=== PATIENT | female | born 1975 | race African-American/Black ===

== ENCOUNTER 2019-08-01 10:17 | Outpatient (CLI) | payer OTHER ==
--- NOTE | 2019-08-01 10:59 | MMO ---
Bilateral MAMMO Bilat Screen [facility]. CLINICAL HISTORY: Patient is 43 years old and is seen for screening. The patient has no family history of breast cancer. The patient has no personal history of cancer. VIEWS: The views performed were: bilateral craniocaudal with tomosynthesis; bilateral mediolateral oblique with tomosynthesis; and left mediolateral oblique. This study has been interpreted with the assistance of computer-aided detection. MAMMOGRAM FINDINGS: There are scattered fibroglandular densities. There are no suspicious masses, suspicious calcifications, or new areas of architectural distortion. IMPRESSION: THERE IS NO MAMMOGRAPHIC EVIDENCE OF MALIGNANCY. A ROUTINE FOLLOW-UP MAMMOGRAM IN 1 YEAR IS RECOMMENDED. THE RESULTS OF THIS EXAM WERE SENT TO THE PATIENT. ACR BI-RADS Category 1 - Negative MAMMOGRAPHY NOTE: 1. A negative mammogram report should not delay a biopsy if a dominant of clinically suspicious mass is present. 2. Approximately 10% to 15% of breast cancers are not detected by mammography. 3. Adenosis and dense breasts may obscure an underlying neoplasm. Reported by: CHAU BARTON MD Electonically Signed: [id number]
== END 2019-08-01 10:18 | disposition home or self-care (01) ==
LOC: BICMAMMO 10:17
PROVIDERS: ATTEND Family Medicine
DX: Z12.31 Encounter for screening mammogram for malignant neoplasm of breast (principal)
CPT/HCPCS: 77063; 77067

== ENCOUNTER 2019-08-23 11:50 | Inpatient (IN) | payer OTHER ==
--- NOTE | 2019-08-23 12:43 | RAD ---
Exam: Chest one view HISTORY:Dyspnea. Patient's is an unknown COVID positive Comparison: 01/21/2016 FINDINGS: Cardiac silhouette: Normal Aorta: Unremarkable Pulmonary vessels: Normal Costophrenic angles: Clear LUNGS: Bilateral interstitial and alveolar opacities Pneumothorax: None Osseous abnormalities: None IMPRESSION: Bilateral interstitial and alveolar opacities. Correlate for edema or infiltrate. Atypica l infection such as COVID cannot be excluded.
[2019-08-23] MEDS ORDERED: Albuterol 200 PUFF (6.7GM INHALER) INH SCH (12:45)
[2019-08-23 12:52] LABS: Mean Corpuscular HGB CONC 32.8 g/dL (32.0-36.0); Mean Corpuscular Hemoglobin 28.6 pg (27.0-31.0); Mean Corpuscular Volume 87.1 fL (78.0-98.0); Mean Platelet Volume 8.9 fL (7.4-10.4); Platelet Count 237 thou/uL (130-400); Red Blood Cell (RBC) Count 3.85 mill/uL (4.20-5.40); White Blood Cell (WBC) Count 6.2 thou/uL (4.8-10.8)
[2019-08-23] MEDS ORDERED: Dexamethasone 4 MG TAB ONE (12:56)
[2019-08-23] MEDS ORDERED: Dexamethasone 10 MG/ML VIAL ONE (12:57)
[2019-08-23] MEDS ORDERED: Albuterol 200 PUFF (6.7GM INHALER) ONE (12:59)
[2019-08-23 13:04] LABS: ALT (SGPT) 86 U/L (8-55); AST (SGOT) 64 U/L (5-34); Albumin 4.1 g/dL (3.5-5.0); Alkaline Phosphatase 127 U/L (40-110); Anion Gap 12 mmol/L (10-20); BUN (Urea Nitrogen) 11 mg/dL (7.0-18.7); Bilirubin, Total 0.5 mg/dL (0.2-1.2); Calc. Creatinine Clearance 0 mL/min (70-130); Calcium 9.4 mg/dL (7.8-10.44); Carbon Dioxide 31 mmol/L (22-29); Chloride 100 mmol/L (98-107); Estimated GFR-MDRD 84; Globulin 4.2 g/dL (2.4-3.5); Glucose 102 mg/dL (70-105); Potassium 3.7 mmol/L (3.5-5.1); Protein, Total 8.3 g/dL (6.0-8.3); Sodium 139 mmol/L (136-145)
[2019-08-23] MEDS ORDERED: Azithromycin 500 MG VIAL ONE (13:06)
[2019-08-23] MEDS ORDERED: cefTRIAXone\\ROCEPHIN 2 GM VIAL ONE (13:06)
[2019-08-23 13:20] LABS: Band 13 % (5-11); Eosinophils 4 % (0-10); Lymphocytes 15 % (21-51); MDiff Complete? YES; Monocytes 2 % (0-10); Neutrophil 64 % (42-75); Nucleated RBC 1 % (0); Polychromasia SLIGHT = 2-3 cells (100X) (0-2/hpf); Reactive Lymphocytes 2 % (0-10)
[2019-08-23 16:16] VITALS: BMI 37.9
[2019-08-23] MEDS ORDERED: Ondansetron ODT 4 MG TAB PO PRN (18:01)
[2019-08-23] MEDS ORDERED: Calcium Carbonate 500 MG ChewTAB PO PRN (18:01)
[2019-08-23] MEDS ORDERED: HYDROcodone/Acetaminophen 5/325 mg Tablet PO PRN (18:01)
[2019-08-23] MEDS ORDERED: Senokot S 8.6-50 MG TAB PO PRN (18:01)
[2019-08-23] MEDS ORDERED: Bisacodyl 5 MG TAB PO PRN (18:01)
--- NOTE | 2019-08-23 18:01 | PDOC.HHP ---
Hospitalist HPI - History of Present Illness shortness of breath History of Present Illness: This is a 43 year old female with past medical history of asthma and hypertension who presented with shortness of breath. THe patient states she was feeling short of breath for the past two days. She developed fever to 102 at home yesterday and some chills. Last night she was unable to sleep due to shortness of breath while laying flat. She also developed a productive cough with white phlegm which later became blood tinged during the day. This morning she was so weak that she could hardly even get out of bed so she came to the ER. She denies runny nose or sore throat but does complain of some muscle aches. She complains that she is unable to take a deep breath due to pain. She denies abdominal pain, nausea or vomiting. The patient states that her tested positive for COVID and self quarantined for fourteen days in a separate bedroom and never left his room. Yesterday was his last day of quarantine. The patient states she always wore a mask while going outside. She does not smoke. SHe does have history of asthma and uses an inhaler only very rarely. ED Course: When EMS arrived, the patient was noted to be in the tripod position saturating 80% on room air. She was placed on a non-rebreather and brought to the ER. She was noted to be 87% on room air in the ER, but maintained saturations on 4L nasal cannula Chest Xray showed bilateral interstitial prominence. COVID rapid swab was positive. WBC showed 13% bands. She was given 10 decadron, ceftriaxone, azithromycin and albuterol mdi treatment. - Exam General Appearance: NAD, awake alert General - other findings: obese Eye: PERRL, anicteric sclera ENT: normocephalic atraumatic, no oropharyngeal lesions Neck: no JVD Heart: RRR, no murmur, no gallops, no rubs Respiratory: CTAB, no wheezes, no rales, no ronchi Gastrointestinal: soft, non-tender, non-distended, normal bowel sounds Extremities: no cyanosis, no clubbing, no edema Skin: normal turgor, no lesions, no rashes Neurological: cranial nerve grossly intact, normal sensation to touch, no new deficit Musculoskeletal: normal tone, normal strength, no muscle wasting Hospitalist Results - Labs Result Diagrams: 08/23/19 12:28 08/23/19 12:28 Lab results: WBC 6.2 thou/uL (4.8-10.8) 08/23/19 12:28 Hgb 11.0 g/dL (12.0-16.0) L 08/23/19 12:28 Hct 33.5 % (36.0-47.0) L 08/23/19 12:28 MCV 87.1 fL (78.0-98.0) 08/23/19 12:28 Plt Count 237 thou/uL (130-400) 08/23/19 12:28 Band Neuts % (Manual) 13 % (5-11) H 08/23/19 12:28 Sodium 139 mmol/L (136-145) 08/23/19 12:28 Potassium 3.7 mmol/L (3.5-5.1) 08/23/19 12:28 Chloride 100 mmol/L (98-107) 08/23/19 12:28 Carbon Dioxide 31 mmol/L (22-29) H 08/23/19 12:28 BUN 11 mg/dL (7.0-18.7) 08/23/19 12:28 Creatinine 0.88 mg/dL (0.6-1.1) 08/23/19 12:28 Glucose 102 mg/dL (70-105) 08/23/19 12:28 Lactic Acid 0.7 mmol/L (0.5-2.2) 08/23/19 12:52 Calcium 9.4 mg/dL (7.8-10.44) 08/23/19 12:28 Total Bilirubin 0.5 mg/dL (0.2-1.2) 08/23/19 12:28 AST 64 U/L (5-34) H 08/23/19 12:28 ALT 86 U/L (8-55) H 08/23/19 12:28 Alkaline Phosphatase 127 U/L (40-110) H 08/23/19 12:28 Troponin I 0.021 ng/mL (< 0.028) 08/23/19 12:28 Serum Total Protein 8.3 g/dL (6.0-8.3) 08/23/19 12:28 Albumin 4.1 g/dL (3.5-5.0) 08/23/19 12:28 Hospitalist H&P A/P - Plan Plan: This is a 43 year old female with history of asthma, obesity presenting with respiratory failure secondary to COVID Acute hypoxic respiratory failure secondary to COVID pneumonia - continue with dexamethasone. CXR with bilateral infiltrates - continue with ceftriaxone and azithromycin. Check Sputum culture, gram stain - check procalcitonin - check blood cultures - wean oxygen to 92% Asthma - continue proair prn DVT prophylaxis: heparin SC Code status: full code
[2019-08-23] MEDS ORDERED: Albuterol Sulfate 2.5 mg/3 ml Neb EZPAP PRN (18:06)
[2019-08-23] MEDS ORDERED: Furosemide 20 MG/2 ML VIAL SLOW IVP SCH (18:15)
[2019-08-23] MEDS: Acetaminophen 325 MG TAB PO PRN (18:23)
[2019-08-23] MEDS: Heparin 5,000 UNITS/ML VIAL SC SCH (20:14)
[2019-08-23] MEDS: Albuterol 200 PUFF (6.7GM INHALER) INH PRN (22:30)
--- NOTE | 2019-08-23 23:07 | PDOC.EVN ---
Event Note - Event Note Event Note: Notified by RN, patient with SOB and tightness in her chest. Known COVID +. Sats 95% on RA, RR 25. Exacerbated by minimal movements. Feels well as long as resting and still. D-Dimer obtained during day, and elevated. I have ordered CTA and ABG. Continue to monitor.
[2019-08-23 23:25] LABS: Actual Bicarbonate (HCO3a) 27.1 mEq/L (22-28); Base Excess (BEa) 2.4 mEq/L (-2.0 to +3.0); CO2 Tension 42.3 mmHg (35.0-45.0); Calcium, Ionized (arterial) 1.14 mmol/L (1.12-1.30); Carboxyhemoglobin (COHb) 0.2 gm% (0.0-3.0); Hemoglobin (Hb) 11.1 g/dL (12.0-16.0); O2 Tension (PaO2), arterial 68.1 mmHg (80.0-100.0); Potassium - ABG Lab 4.35 mmol/L (3.70-5.30); pH, Arterial 7.42 (7.35-7.45)
[2019-08-23 23:27] LABS: ALV-art Gradient 107.185 (0-20); Puncture Site LRA
--- NOTE | 2019-08-23 23:59 | CT ---
CTA Angio Chest W WO Con 08/23/2019 11:05 PM Indication: Shortness of breath, cough and Covid positive status Technique: Multiple CTA images were obtained of the thorax with IV contrast. 3-D rendering: MIP grecia nstructed images were created and reviewed. Comparison: No relevant prior studies available. Findings: Pulmonary arteries: No central or segmental pulmonary embolus is evident. Heart and Aorta: Normal appearing. Mediastinum:Normal appearing. No enlarged lymph nodes. Lungs:There is bilateral airspace disease involving both lungs consistent with pneumonia. Pleural space: Clear. Upper Abdomen: No acute abnormality. Osseous Structures: No acute osseous abnormality. Soft tissues:No abnormality. Other findings:None. Impression: No central or segmental pulmonary embolus. Bilateral pneumonia.
[2019-08-24] MEDS: Albuterol 200 PUFF (6.7GM INHALER) INH PRN (04:30)
[2019-08-24] MEDS: Acetaminophen 325 MG TAB PO PRN ×2 (04:41→17:01)
[2019-08-24] MEDS: Benzonatate 100 MG CAP PO PRN ×2 (04:41→17:01)
[2019-08-24 06:36] LABS: Mean Corpuscular HGB CONC 31.7 g/dL (32.0-36.0); Mean Corpuscular Hemoglobin 27.4 pg (27.0-31.0); Mean Corpuscular Volume 86.4 fL (78.0-98.0); Mean Platelet Volume 8.7 fL (7.4-10.4); Platelet Count 278 thou/uL (130-400); Red Blood Cell (RBC) Count 3.66 mill/uL (4.20-5.40); White Blood Cell (WBC) Count 5.2 thou/uL (4.8-10.8)
[2019-08-24 06:43] LABS: Anion Gap 13 mmol/L (10-20); BUN (Urea Nitrogen) 14 mg/dL (7.0-18.7); Calc. Creatinine Clearance 158 mL/min (70-130); Calcium 9.2 mg/dL (7.8-10.44); Carbon Dioxide 29 mmol/L (22-29); Chloride 102 mmol/L (98-107); Estimated GFR-MDRD Greater than 90; Glucose 133 mg/dL (70-105); Potassium 4.2 mmol/L (3.5-5.1); Sodium 140 mmol/L (136-145)
[2019-08-24] MEDS: Dexamethasone 4 MG TAB PO SCH (08:24)
[2019-08-24] MEDS: Azithromycin 250 MG TAB PO SCH (08:24)
[2019-08-24] MEDS: Heparin 5,000 UNITS/ML VIAL SC SCH ×3 (08:25→20:59)
[2019-08-24 08:38] LABS: Band 15 % (5-11); Lymphocytes 8 % (21-51); MDiff Complete? YES; Monocytes 8 % (0-10); Neutrophil 65 % (42-75); Platelet Morphology Comment Appears Adequate; Polychromasia SLIGHT = 2-3 cells (100X) (0-2/hpf); Reactive Lymphocytes 4 % (0-10)
[2019-08-24 13:11] LABS: ALT (SGPT) 78 U/L (8-55); AST (SGOT) 59 U/L (5-34); Albumin 3.9 g/dL (3.5-5.0); Alkaline Phosphatase 132 U/L (40-110); Bilirubin, Direct 0.2 mg/dL (0.1-0.3); Bilirubin, Total 0.4 mg/dL (0.2-1.2)
[2019-08-24] MEDS ORDERED: Amlodipine 10 MG TAB PO SCH (13:45)
[2019-08-24] MEDS: cefTRIAXone\\ROCEPHIN 1 GM in Sodium Chloride 0.9% 100 ML IVPB SCH (14:01)
--- NOTE | 2019-08-24 17:13 | PDOC.HOSPP ---
- Subjective Encounter Date: 08/24/19 Encounter Time: 09:00 Subjective: The patient states she feels slightly better. Her chest feels less tight. Her muscle aches have improved. No fevers. She still has a cough and feels very fatigued with minimal activity SHe was on 3L nasal cannula saturating 88% after ambulation She reported only slight urine output with lasix BP was 161/100 today - Objective Vital Signs & Weight: Vital Signs (12 hours) Temp Pulse Resp BP BP Pulse Ox 08/24/19 17:05 97.5 F L 82 22 H 125/82 91 L 08/24/19 14:19 115/74 08/24/19 14:01 96 08/24/19 13:31 98.1 F 96 20 131/88 95 08/24/19 09:06 98.1 F 99 20 162/118 H 98 08/24/19 08:20 98 08/24/19 08:00 98.1 F 99 20 162/118 H 98 Weight Admit Weight 242 lb 1 oz Weight 242 lb 1 oz I&O: 08/23/19 08/24/19 08/25/19 06:59 06:59 06:59 Intake Total 1440 1000 Balance 1440 1000 Result Diagrams: 08/24/19 06:00 08/24/19 06:00 Hospitalist ROS - Review of Systems Constitutional: denies: fever, chills - Medication Medications: Active Medications Generic Name Dose Route Start Last Admin Trade Name Freq PRN Reason Stop Dose Admin Acetaminophen 650 mg 08/23/19 18:01 08/24/19 17:01 Tylenol PO 650 mg Q4H PRN Administration Headache/Fever/Mild Pain (1-3) Albuterol Sulfate 2 puff 08/23/19 19:42 08/24/19 04:30 Proventil Hfa INH 2 inh [id number] PRN Administration Wheezing Azithromycin 250 mg 08/24/19 09:00 08/24/19 08:24 Zithromax PO 08/27/19 09:01 250 mg DAILY KATY Administration Benzonatate 100 mg 08/24/19 04:39 08/24/19 17:01 Tessalon PO 100 mg TID PRN Administration Cough Dexamethasone 6 mg 08/24/19 08:00 08/24/19 08:24 Decadron PO 6 mg QAM-WM KATY Administration Heparin Sodium (Porcine) 5,000 units 08/23/19 21:00 08/24/19 14:01 Heparin SC 5,000 units TID KATY Administration Ceftriaxone Sodium 1 gm/ 100 mls @ 200 mls/hr 08/24/19 14:00 08/24/19 14:01 Sodium Chloride IVPB 100 mls Q24HR KATY Administration Sodium Chloride 10 ml 08/23/19 21:00 08/24/19 08:26 Flush - Normal Saline IVF 10 ml Q12HR KATY Administration - Exam General Appearance: NAD, awake alert Eye: PERRL, anicteric sclera ENT: normocephalic atraumatic, no oropharyngeal lesions Neck: no JVD Heart: RRR, no murmur, no gallops, no rubs Respiratory: CTAB, no wheezes, no rales, no ronchi Gastrointestinal: soft, non-tender, non-distended, normal bowel sounds Extremities: no cyanosis, no clubbing, no edema Skin: normal turgor, no lesions, no rashes Neurological: cranial nerve grossly intact, normal sensation to touch, no focal deficits, no new deficit Musculoskeletal: normal tone, normal strength, no muscle wasting Psychiatric: normal affect, normal behavior, not oriented Hosp A/P - Plan This is a 43 year old female with history of asthma, obesity presenting with respiratory failure secondary to COVID Acute hypoxic respiratory failure secondary to COVID pneumonia - continue with dexamethasone. CXR with bilateral infiltrates. She is still on 3L oxygen - continue with ceftriaxone and azithromycin. Check Sputum culture, gram stain - check procalcitonin - check blood cultures - wean oxygen to 92% Anemia - Hb stable, 10. Check folate and B12 in am Transaminitis - improving, downtrending Hypertension - resume amlodipine Asthma - continue proair prn Code status: full code
[2019-08-25] MEDS: Benzonatate 100 MG CAP PO PRN ×2 (03:16→17:56)
[2019-08-25] MEDS: Acetaminophen 325 MG TAB PO PRN ×2 (03:16→21:17)
[2019-08-25 05:53] LABS: Hemoglobin 9.8 g/dL (12.0-16.0); Mean Corpuscular HGB CONC 30.6 g/dL (32.0-36.0); Mean Corpuscular Hemoglobin 26.3 pg (27.0-31.0); Mean Platelet Volume 8.5 fL (7.4-10.4); Platelet Count 358 thou/uL (130-400); RBC Distribution Width 12.9 % (11.5-14.5); Red Blood Cell (RBC) Count 3.71 mill/uL (4.20-5.40); White Blood Cell (WBC) Count 7.8 thou/uL (4.8-10.8)
[2019-08-25 06:12] LABS: ALT (SGPT) 69 U/L (8-55); AST (SGOT) 44 U/L (5-34); Albumin 3.7 g/dL (3.5-5.0); Alkaline Phosphatase 117 U/L (40-110); Bilirubin, Direct 0.2 mg/dL (0.1-0.3); Bilirubin, Total 0.3 mg/dL (0.2-1.2); Protein, Total 7.5 g/dL (6.0-8.3)
[2019-08-25] MEDS: Dexamethasone 4 MG TAB PO SCH (08:18)
[2019-08-25] MEDS: Amlodipine 10 MG TAB PO SCH (08:18)
[2019-08-25] MEDS: Heparin 5,000 UNITS/ML VIAL SC SCH ×3 (08:18→21:16)
[2019-08-25] MEDS: Azithromycin 250 MG TAB PO SCH (08:18)
--- NOTE | 2019-08-25 10:12 | CON ---
DATE OF CONSULTATION: 08/25/2019 CONSULTING PHYSICIAN: Zena Sykes MD REASON FOR CONSULTATION: COVID-19 pneumonia. HISTORY OF PRESENT ILLNESS: This is a 43-year-old female, who has been sick for the last 4 days. She has COVID-19 pneumonia. She got this from her , who was initially sick. PAST MEDICAL HISTORY: Hypertension. PAST SURGICAL HISTORY: Hysterectomy. SOCIAL HISTORY: Nonsmoker. Very occasionally drinks alcohol. 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 ALLERGIES: NONE. MEDICATIONS: Prior to admission; 1. Amlodipine. 2. Hydrochlorothiazide. REVIEW OF SYSTEMS: Remarkable for cough, congestion, and intermittent fever. PHYSICAL EXAMINATION: VITAL SIGNS: Temperature 98.5; pulse 73; and O2 saturation is 91% on room air, 96% on 3 L. HEENT: Unremarkable. NECK: No adenopathy or JVD. LUNGS: Inspiratory crackles. CARDIAC: S1 and S2. Regular. ABDOMEN: Soft. EXTREMITIES: No edema. IMAGING DATA: Chest x-ray show bilateral infiltrates. This was confirmed on CT scan. LABORATORY DATA: White blood cell count 7.8, hematocrit 31.9, and platelet count 358. Sodium 140, potassium 4.2, chloride 102, CO2 of 29, BUN 14, creatinine 0.7, and glucose 133. ASSESSMENT: COVID-19 pneumonia, so far without complication other than hypoxemia. RECOMMENDATIONS: She is currently on Decadron. She is on heparin subcu. I would leave her in the hospital until she is no longer desaturating without oxygen. I will consider treating her with anticoagulation for a couple of weeks after discharge. Job ID: [id number]
[2019-08-25] MEDS: cefTRIAXone\\ROCEPHIN 1 GM in Sodium Chloride 0.9% 100 ML IVPB SCH (14:21)
--- NOTE | 2019-08-25 17:05 | PDOC.HOSPP ---
- Subjective Encounter Date: 08/25/19 Encounter Time: 16:00 Subjective: The patient states she feels better. She was able to take a shower today but still feels fatigued with too much activity. She states she was very tachypneic overnight She has mild cough She desaturated to 85% on room air while ambulating - Objective Vital Signs & Weight: Vital Signs (12 hours) Temp Pulse Resp BP Pulse Ox 08/25/19 15:53 98.1 F 82 20 119/82 97 08/25/19 12:43 98.1 F 90 20 127/85 94 L 08/25/19 08:18 73 08/25/19 08:00 98.5 F 82 20 119/82 97 Weight Admit Weight 242 lb 1 oz Weight 242 lb 1 oz I&O: 08/24/19 08/25/19 08/26/19 06:59 06:59 06:59 Intake Total 1440 1000 Balance 1440 1000 Result Diagrams: 08/25/19 05:33 08/24/19 06:00 Hospitalist ROS - Review of Systems Constitutional: denies: fever, chills - Medication Medications: Active Medications Generic Name Dose Route Start Last Admin Trade Name Freq PRN Reason Stop Dose Admin Acetaminophen 650 mg 08/23/19 18:01 08/25/19 03:16 Tylenol PO 650 mg Q4H PRN Administration Headache/Fever/Mild Pain (1-3) Albuterol Sulfate 2 puff 08/23/19 19:42 08/24/19 04:30 Proventil Hfa INH 2 inh [id number] PRN Administration Wheezing Amlodipine Besylate 10 mg 08/25/19 09:00 08/25/19 08:18 Norvasc PO 10 mg DAILY KATY Administration Azithromycin 250 mg 08/24/19 09:00 08/25/19 08:18 Zithromax PO 08/27/19 09:01 250 mg DAILY KATY Administration Benzonatate 100 mg 08/24/19 04:39 08/25/19 03:16 Tessalon PO 100 mg TID PRN Administration Cough Dexamethasone 6 mg 08/24/19 08:00 08/25/19 08:18 Decadron PO 6 mg QAM-WM KATY Administration Heparin Sodium (Porcine) 5,000 units 08/23/19 21:00 08/25/19 14:22 Heparin SC 5,000 units TID KATY Administration Ceftriaxone Sodium 1 gm/ 100 mls @ 200 mls/hr 08/24/19 14:00 08/25/19 14:21 Sodium Chloride IVPB 100 mls Q24HR KATY Administration Sodium Chloride 10 ml 08/23/19 21:00 08/25/19 08:19 Flush - Normal Saline IVF 10 ml Q12HR KATY Administration - Exam General Appearance: NAD, awake alert Eye: PERRL, anicteric sclera ENT: normocephalic atraumatic, no oropharyngeal lesions Neck: no JVD Heart: RRR, no murmur, no gallops, no rubs Respiratory: CTAB, no wheezes, no rales, no ronchi Gastrointestinal: soft, non-tender, non-distended, normal bowel sounds, no hepatomegaly Extremities: no cyanosis, no clubbing, no edema Hosp A/P - Plan This is a 43 year old female with history of asthma, obesity presenting with respiratory failure secondary to COVID Acute hypoxic respiratory failure secondary to COVID pneumonia - continue with dexamethasone. CXR with bilateral infiltrates. She is down to 3L oxygen. Wean sats to 92% - procalcitinon normal. Blood cultures normal. Sputum culture normal. On ceftriaxone and azithromycin. Will dc IV ceftriaxone, switch to oral but consider d/c tomorrow if improvement - wean oxygen to 92% Folate deficiency Anemia - Hb stable, 10. Start folate supplements Transaminitis - improving, downtrending. Was given lasix on admission due to orthopnea Hypertension - resume amlodipine Asthma - continue proair prn Code status: full code
[2019-08-25] MEDS ORDERED: Folic Acid 1 MG TAB PO SCH (17:15)
[2019-08-26] MEDS: Benzonatate 100 MG CAP PO PRN (00:09)
[2019-08-26] MEDS: Heparin 5,000 UNITS/ML VIAL SC SCH (07:54)
[2019-08-26] MEDS: Amlodipine 10 MG TAB PO SCH (07:54)
[2019-08-26] MEDS: Azithromycin 250 MG TAB PO SCH (07:54)
[2019-08-26] MEDS: Dexamethasone 4 MG TAB PO SCH (07:54)
[2019-08-26] MEDS ORDERED: Folic Acid 1 MG TAB PO SCH (09:00)
[2019-08-26] MEDS ORDERED: Cefdinir 300 MG CAP PO SCH (09:00)
[2019-08-26 11:10] VITALS: BP 131/84; TEMP 98.3
--- NOTE | 2019-08-27 21:43 | DIS ---
DATE OF ADMISSION: 08/23/2019 DATE OF DISCHARGE: 08/26/2019 DISCHARGE DIAGNOSES: 1. Acute respiratory failure with hypoxia. 2. COVID-19 pneumonia. 3. Transaminitis due to COVID-19. 4. Hypertension. 5. Asthma. 6. Folate deficiency anemia. DISCHARGE MEDICATIONS: 1. Omnicef 300 mg orally twice daily for 4 days. 2. Dexamethasone 6 mg orally daily for 7 days. 3. Amlodipine 10 mg orally daily. 4. Hydrochlorothiazide 25 mg orally daily. 5. Albuterol sulfate 90 mcg inhaled q.6 hours as needed shortness of breath or wheezing. HISTORY OF PRESENT ILLNESS AND HOSPITAL COURSE: The patient is a 43-year-old female with past medical history of hypertension and asthma, who presented to the hospital with shortness of breath, fever, and cough. The patient and her tested positive for COVID-19 and self-quarantined for 14 days. The day before presentation, the patient finished her quarantine, but she was still symptomatic. Chest x-ray revealed bilateral infiltrates, and the patient was found to be hypoxic in the ER. She was admitted to the hospital and started on dexamethasone and antibiotics. The patient stayed in hospital for 3 days, and her symptoms gradually improved. On the day of discharge, she was able to maintain with oxygen saturations at rest. She will continue the rest of her management at home. Job ID: [id number]
--- NOTE | 2019-08-28 07:58 | PQF ---
CLINICAL DOCUMENTATION CLARIFICATION FORM: Dear : Shamar Thompson Date / Time: 08/28/2019 07:57 Please exercise your independent, professional judgment in responding to the clarification form. Clinical indicators are provided on the bottom of this form for your review Please check appropriate box(es): [ >] Sepsis due to Covid19 [ ] Localized infection without sepsis [ ] Other diagnosis [ ] Unable to determine In addition, please specify: Present on Admission (POA): [ > ] Yes [ ] No [ ] Unable to determine Physician Signature: Date/Time: For continuity of documentation, please document condition throughout progress notes and discharge summary. Thank You. To be completed by CDI/Coding staff for physician review: Present Clinical Indicators - Signs / Symptoms / Labs Results and Location in Medical Record [X] Bilateral interstitial and alveolar opacities Chest Xray 08/22 [X] presented for SOB HP 08/22 [X] She developed fever 102 and some chill HP 08/22 [X] acute hypoxic respiratory failure secondary to Covid pneumonia HP 08/22 [X] Vital Signs: Temp=98.4 Pnqrq=297 Respi=24 VW=569/78 Vital Signs 08/22 [X] Labs WBC: 08/22=6.2 08/24=7.8 Labs 08/22 [X] Labs Lactate: 08/22=0.7 Labs 08/22 [X] Labs Procalcitonin: 08/22=0.12 Labs 08/22 [X] Blood culture:no growth Collected 08/22 Present Risk Factors Results and Location in Medical Record [X] Covid 19 infection HP 08/22 [X] PNA HP 08/22 [X] Obesity HP 08/22 Present Treatments Results and Location in Medical Record [X] Chest Xray Collected 08/22 [X] Oxygen via NC HP 08/22 [X] Azithromycin 500mg IV APR 21 [X] Rocephin 2gm IV APR 21 [X] Blood culture Collected 08/22 CDS/Reproducer Signature: Tania Cole Phone #: [phone] Date/Time:08/28/2019 07:57 This is a permanent part of the Medical Record [facility]
== END 2019-08-26 12:19 | disposition home or self-care (01) | DRG 871 ==
LOC: ERS 11:50 → T4-A 14:32
PROVIDERS: ADMIT Internal Medicine; ATTEND Internal Medicine
DX: A41.89 Other specified sepsis (principal); U07.1 COVID-19; J12.89 Other viral pneumonia; J96.01 Acute respiratory failure with hypoxia; J45.909 Unspecified asthma, uncomplicated; I10 Essential (primary) hypertension; R74.0 Nonspecific elevation of levels of transaminase and lactic acid dehydrogenase [LDH]; E66.9 Obesity, unspecified; D52.9 Folate deficiency anemia, unspecified; Z90.710 Acquired absence of both cervix and uterus; Z79.899 Other long term (current) drug therapy; Z68.33 Body mass index [BMI] 33.0-33.9, adult
CPT/HCPCS: 36415; 71045; 71275; 80048; 80053; 80076; 82607; 82746; 82805; 83605; 84145; 84484; 85025; 85027; 85379; 87040; 87070; 87205; 96365; 96366; 96367; 96375; J0456; J0696; J1100; J1644; J1940; J3490; J8540; U0002